=== PATIENT | female | born 1995 | race Caucasian/White ===

== ENCOUNTER 2021-04-04 13:54 | Emergency (ER) | payer MEDICAID ==
[~2021-04-04] VITALS: Ht 162.6 cm; Wt 91.0 kg
[2021-04-04 14:39] VITALS: BP 123/83
[2021-04-04 15:41] LABS: BASOPHILS % 0.2 % (0.0-2.0); HEMATOCRIT. 42.6 % (36.0-48.0); HEMOGLOBIN. 13.8 g/dL (12.0-16.0); LYMPHOCYTES % 11.9 % (20.0-50.0); MEAN CORPUSCULAR HEMOGLOBIN 27.6 pg (28.0-32.0); MEAN CORPUSCULAR VOLUME 85.2 fL (81.0-99.0); MEAN PLATELET VOLUME 9.2 fl (7.4-10.4); MONOCYTES % 11.8 % (2.0-8.0); NEUTROPHILS % 76.1 % (40.0-76.0); PLATELET 204 x1000/uL (130-400); RED CELL DISTRIBUTION WIDTH 13.2 % (11.6-14.6)
[2021-04-04 15:51] LABS: CHLORIDE 103 mEq/L (98-107); PROTHROMBIN TIME 10.5 sec (9.6-11.0)
[2021-04-04 16:01] LABS: HCG SCREEN NEGATIVE
[2021-04-04] MEDS ORDERED: ONDA4TAB11 PO (17:35)
[2021-04-04] MEDS ORDERED: IBUP-2030 MT (17:39)
== END 2021-04-05 08:31 | disposition home or self-care (01) ==
LOC: ER 13:54
DX: K80.70 Calculus of gallbladder and bile duct without cholecystitis without obstruction (principal); K21.9 Gastro-esophageal reflux disease without esophagitis; E66.9 Obesity, unspecified; Z87.19 Personal history of other diseases of the digestive system; Z68.34 Body mass index [BMI] 34.0-34.9, adult
CPT/HCPCS: 36415; 76705; 80053; 84703; 85025; 99284